=== PATIENT | female | born 1940 | race Caucasian/White ===

== ENCOUNTER 2017-04-23 11:00 | Outpatient (RCR) | payer MEDICARE, BC ==
[2013-05-20 11:00] VITALS: BP 137/62
[~2017-04-23 11:00] MED LIST: AMARYL2 MG PO; AZULFIDINE ENT500 MG PO; CHROMIUM PICO500 MC1 PO; FISH OIL1 IU PO; SLOW-MAG 6464 MG/TAB PO; VITAMIN B122000 MCG PO
== END 2017-04-27 10:53 | disposition home or self-care (01) ==
LOC: PT 11:00
DX: M79.601 Pain in right arm (principal); Z91.81 History of falling

== ENCOUNTER 2018-07-29 11:00 | Outpatient (RCR) | payer MEDICARE, BC ==
[2013-05-20 11:00] VITALS: BP 137/62
== END 2018-07-29 11:30 | disposition home or self-care (01) ==
LOC: OT 11:00
DX: G31.85 Corticobasal degeneration (principal)

== ENCOUNTER → 2019-04-07 | Outpatient (CLI) | payer MEDICARE, BC ==
[2013-05-20 11:00] VITALS: BP 137/62
== END ==
LOC: RAD 07:56
DX: R74.8 Abnormal levels of other serum enzymes (principal)